=== PATIENT | male | born 1975 | race Caucasian/White ===

== ENCOUNTER 2019-11-30 08:27 | Inpatient (IN) | payer MEDICAID, OTHER ==
[~2019-11-30] VITALS: Ht 177.8 cm; Wt 91.5 kg
[2019-11-30] MEDS ORDERED: LORazepam 1MG TABLET ONE (09:25)
[2019-11-30] MEDS ORDERED: LORazepam 2 MG/ML, 1ML IVPush ONE (09:30)
[2019-11-30] MEDS ORDERED: LORazepam 1MG TABLET PO ONE (09:30)
[2019-11-30] MEDS ORDERED: SODIUM CHLORIDE FLUSH 10ML SYR IVF ONE ×2 (09:30→10:30)
--- NOTE | 2019-11-30 09:35 | NUR ---
PT STATES HE WAS TOLD TO COME HERE BY PCP D/T PENDING COVID TEST. PT SATING 99% RA, OCCASIONAL DRY COUGH, DENIES SOB. NO FEVER. PT IS NOTED TO BE JAUNDICED AND WITH ACITIC ABD. PT WITH HX LIVER CIRHHOSIS
[2019-11-30 10:09] LABS: ALBUMIN 2.1 g/dL (3.4-5.0); ANION GAP 18 mmol/L (5-15); CALCIUM 7.3 mg/dL (8.5-10.1); CHLORIDE 92 mmol/L (98-107)
[2019-11-30 10:21] LABS: ALANINE AMINOTRANSFERASE 96 U/L (12-78); ALKALINE PHOSPHATASE 176 U/L (45-117)
[2019-11-30 10:23] LABS: TOTAL PROTEIN 5.6 g/dL (6.4-8.2)
[2019-11-30 10:24] LABS: BILIRUBIN,TOTAL 42.9 mg/dL (0.2-1.0)
--- NOTE | 2019-11-30 10:30 | NUR ---
CRITICAL VALUES REPORTED TO JAZMYN. DISCUSSED POC. NEPHROLOGY PAGED. PIV ESTABLISHED, ANTICIPATE ADMIT
[2019-11-30 10:33] LABS: BASOPHILS # (AUTO) 0.06 x10^3/uL (0-0.1); BASOPHILS % (AUTO) 1 % (0-1); EOSINOPHILS # (AUTO) 0.13 x10^3/uL (0-0.4); EOSINOPHILS % (AUTO) 1 % (1-7); LYMPHOCYTES # (AUTO) 0.83 x10^3/uL (1-3.4); LYMPHOCYTES % (AUTO) 8 % (22-44); MD SCAN; MEAN CORPUSCULAR HEMOGLOBIN 38.2 pg (27.5-34.5); MEAN CORPUSCULAR HGB CONC 34.7 g/dL (33.2-36.2); MEAN CORPUSCULAR VOLUME 109.9 fL (81-97); MEAN PLATELET VOLUME 9.4 fL (7.4-10.4); MONOCYTES # (AUTO) 1.22 x10^3/uL (0.2-0.8); MONOCYTES % (AUTO) 12 % (2-9); NEUTROPHILS # (AUTO) 7.92 x10^3/uL (1.8-6.8); NEUTROPHILS % (AUTO) 78 % (42-75); PLATELET COUNT 25 x10^3/uL (130-400); RED CELL DISTRIBUTION WIDTH 20.6 % (9.4-14.8)
[2019-11-30 10:34] LABS: HEMOGRAM NOTE RECHECKED
[2019-11-30] MEDS ORDERED: POTASSIUM CHLORIDE 20 MEQ TAB.ER.PRT ONE (10:49)
[2019-11-30] MEDS ORDERED: POTASSIUM CHLORIDE 20 MEQ TAB.ER.PRT PO ONE ×2 (11:00)
--- NOTE | 2019-11-30 11:06 | NUR ---
ADMITTING MD IN TO EVAL PT AT THIS TIME. PT MEDICATED PER MAR FOR POTASSIUM REPLACEMENT. GIVEN WATER PER REQUEST. VSS
[2019-11-30] MEDS ORDERED: SODIUM CHLORIDE 0.9% 1,000 ML IV SCH (11:30)
[2019-11-30] MEDS ORDERED: LORazepam 0.5MG TABLET PO PRN (12:00)
[2019-11-30 12:16] LABS: HCT (SEDRATE) 44.3 % (39.2-51.8)
[2019-11-30 12:24] LABS: INTERNATIONAL NORMALIZED RATIO 3.04 (0.93-1.1); PROTHROMBIN TIME 32.6 Seconds (9.6-11.5)
--- NOTE | 2019-11-30 13:06 | NUR ---
REPORT GIVEN TO RECIEVING RN, AWAITING TRANSPORT
[2019-11-30 13:30] VITALS: BP 112/62
[2019-11-30 13:33] LABS: CREATINE KINASE, TOTAL 1578 U/L (39-308)
[2019-11-30] MEDS ORDERED: THIAMINE 200 MG in SODIUM CHLORIDE 0.9% 50 ML IV ONE (14:00)
[2019-11-30] MEDS ORDERED: LORA-446 PO (14:12)
[2019-11-30] MEDS: SODIUM BICARBONATE 8.4% 75 MEQ in SODIUM CHLORIDE 0.45% 1,000 ML IV SCH (14:30)
[2019-11-30] MEDS: ALBUMIN HUMAN 25% 100 ML IV SCH ×2 (15:30→20:20)
[2019-11-30] MEDS: PANTOPRAZOLE 40 MG IV IVPush SCH (15:31)
[2019-11-30] MEDS: POTASSIUM CHLORIDE 20 MEQ TAB.ER.PRT PO SCH (15:45)
[2019-12-01] MEDS: SODIUM BICARBONATE 8.4% 75 MEQ in SODIUM CHLORIDE 0.45% 1,000 ML IV SCH (03:13)
[2019-12-01] MEDS: ALBUMIN HUMAN 25% 100 ML IV SCH ×4 (03:13→21:22)
[2019-12-01 04:00] VITALS: BP 104/80
[2019-12-01 06:01] LABS: AMPHETAMINE SCREEN, URINE Negative (Negative); BARBITURATE SCREEN, URINE Negative (Negative); BENZODIAZEPINE SCREEN, URINE Positive (Negative); CANNABINOID SCREEN, URINE Negative (Negative); COCAINE SCREEN, URINE Negative (Negative); METHADONE SCREEN, URINE Negative (Negative); OPIATE SCREEN, URINE Negative (Negative)
[2019-12-01 06:25] LABS: CHLORIDE 91 mmol/L (98-107)
[2019-12-01 06:37] LABS: CHLORIDE,URINE RANDOM 42 mmol/L; POTASSIUM,URINE RANDOM 52 mmol/L; SODIUM,URINE RANDOM 46 mmol/L
[2019-12-01 06:38] LABS: MICROSCOPIC INDICATED
[2019-12-01 06:41] LABS: ALANINE AMINOTRANSFERASE 77 U/L (12-78); ALBUMIN 2.9 g/dL (3.4-5.0); ALKALINE PHOSPHATASE 132 U/L (45-117); ANION GAP 19 mmol/L (5-15); CALCIUM 7.1 mg/dL (8.5-10.1)
[2019-12-01 06:51] LABS: MEAN CORPUSCULAR HEMOGLOBIN 38.2 pg (27.5-34.5); MEAN CORPUSCULAR HGB CONC 35.4 g/dL (33.2-36.2); MEAN CORPUSCULAR VOLUME 108.1 fL (81-97); MEAN PLATELET VOLUME 10.7 fL (7.4-10.4); RED BLOOD COUNT 3.51 x10^6/uL (4.38-5.82); RED CELL DISTRIBUTION WIDTH 19.7 % (9.4-14.8)
[2019-12-01 06:53] LABS: PLATELET COUNT 11 x10^3/uL (130-400)
[2019-12-01 06:58] LABS: TOTAL PROTEIN 5.2 g/dL (6.4-8.2)
[2019-12-01 06:59] LABS: BASOPHILS # (AUTO) 0.02 x10^3/uL (0-0.1); BASOPHILS % (AUTO) 0 % (0-1); EOSINOPHILS # (AUTO) 0.14 x10^3/uL (0-0.4); EOSINOPHILS % (AUTO) 2 % (1-7); LYMPHOCYTES # (AUTO) 1.12 x10^3/uL (1-3.4); LYMPHOCYTES % (AUTO) 12 % (22-44); MD SCAN; MONOCYTES # (AUTO) 1.13 x10^3/uL (0.2-0.8); MONOCYTES % (AUTO) 12 % (2-9); NEUTROPHILS # (AUTO) 6.89 x10^3/uL (1.8-6.8); NEUTROPHILS % (AUTO) 74 % (42-75)
[2019-12-01 07:00] LABS: BILIRUBIN,TOTAL 42.7 mg/dL (0.2-1.0)
[2019-12-01] MEDS: POTASSIUM CHLORIDE 20 MEQ TAB.ER.PRT PO SCH (08:35)
[2019-12-01] MEDS: PANTOPRAZOLE 40 MG IV IVPush SCH (08:35)
[2019-12-01] MEDS ORDERED: SODIUM BICARBONATE 8.4% 75 MEQ in SODIUM CHLORIDE 0.45% 1,000 ML IV SCH (13:43)
[2019-12-01] MEDS ORDERED: THIAMINE 100 MG in SODIUM CHLORIDE 0.9% 50 ML IV SCH (14:00)
[2019-12-01] MEDS ORDERED: LORazepam 2 MG/ML, 1ML IVPush PRN (23:00)
[2019-12-02] MEDS: ALBUMIN HUMAN 25% 100 ML IV SCH (01:58)
[2019-12-02] MEDS ORDERED: SODIUM CHLORIDE 0.9%, 500ML IVBOLUS ONE (05:00)
[2019-12-02] MEDS ORDERED: ALBUMIN HUMAN 25% 100 ML IV ONE (05:00)
== END 2019-12-02 10:35 | disposition expired | DRG 432 ==
LOC: ED 09:55 → EDIP 10:43 → ICU 13:32
PROVIDERS: ADMIT Internal Medicine; ATTEND Internal Medicine
DX: K70.40 Alcoholic hepatic failure without coma (principal); N18.6 End stage renal disease; N17.0 Acute kidney failure with tubular necrosis; K76.7 Hepatorenal syndrome; K76.6 Portal hypertension; R18.8 Other ascites; E87.1 Hypo-osmolality and hyponatremia; D68.9 Coagulation defect, unspecified; K74.60 Unspecified cirrhosis of liver; D69.6 Thrombocytopenia, unspecified; E87.6 Hypokalemia; F13.90 Sedative, hypnotic, or anxiolytic use, unspecified, uncomplicated; F41.1 Generalized anxiety disorder; Z51.5 Encounter for palliative care; Z87.891 Personal history of nicotine dependence; Z20.828 Contact with and (suspected) exposure to other viral communicable diseases; E87.8 Other disorders of electrolyte and fluid balance, not elsewhere classified; Z66 Do not resuscitate
CPT/HCPCS: 36415; 71045; 76700; 80053; 80074; 80307; 81001; 82140; 82436; 82550; 82728; 83036; 83516; 83520; 83605; 83615; 83690; 83735; 83930; 83935; 84100; 84133; 84145; 84300; 85025; 85610; 85651; 86038; 86140; 86160; 86162; 86225; 86256; 87081; 87086; 93005; 96374; 99291; G0378; J3411; P9047; C9113; J2060; J7040